=== PATIENT | male | born 2000 | race Caucasian/White ===

== ENCOUNTER → 2020-06-06 10:54 | Outpatient (CLI) | payer BC, SELFPAY ==
--- NOTE | 2020-06-06 11:03 | RAD_ITS ---
STUDY: X-RAY - LEFT SHOULDER REASON FOR EXAM: Left shoulder pain for 2 days, acromioclavicular joint repair last summer. TECHNIQUE: 4 view(s) of the shoulder. COMPARISON: None. FINDINGS: Normal glenohumeral articulation. There is resection of the distal clavicle and coracoclavicular ligament reconstruction. Normal acromion. Normal humeral head and visualized proximal humerus. The soft tissue structures are unremarkable. Normal visualized pulmonary apex. RAD/Shoulder min 2 Views IMPRESSION: Unremarkable postoperative x-ray examination of the left shoulder. Electronically Signed: Malcolm Ochoa MD at 11:43 EST Tel , Service support ,
== END ==
PROVIDERS: PCP Family Medicine; Referring Provider Family Medicine; Visit Provider Family Medicine
DX: M25.512 Pain in left shoulder (principal)
CPT/HCPCS: 73030